=== PATIENT | female | born 1990 | race African-American/Black ===

== ENCOUNTER 2019-05-12 16:09 | Outpatient (CLI) | payer OTHER ==
[2019-05-12 18:10] LABS: BACTERIA (WET MOUNT) 4+ BACTERIA SEEN; EPITHELIALS (WET MOUNT) 4+ EPITHELIALS SEEN; T.VAGINALIS (WET MOUNT) NO TRICHOMONAS SEEN; WBCS (WET MOUNT) 2+ WBCS SEEN; YEAST (WET MOUNT) NO YEAST SEEN
[2019-05-12 18:36] LABS: APPEARANCE,URINE CLEAR; BILIRUBIN,URINE NEGATIVE (NEGATIVE); COLOR,URINE YELLOW; GLUCOSE, URINE NEGATIVE (NEGATIVE); KETONES,URINE TRACE mg/dL (NEGATIVE); LEUKOCYTE ESTERASE,URINE TRACE (NEGATIVE); NITRITE,URINE NEGATIVE (NEGATIVE); PROTEIN,URINE NEGATIVE (NEGATIVE); URINE SPECIFIC GRAVITY 1.003; UROBILINOGEN,URINE NEGATIVE mg/dL (<2.0)
[2019-05-12 18:40] LABS: URINE AMPHETAMINES SCREEN NEGATIVE; URINE BARBITURATES SCREEN NEGATIVE; URINE BENZODIAZEPINES SCREEN NEGATIVE; URINE COCAINE SCREEN NEGATIVE; URINE MARIJUANA (THC) SCREEN NEGATIVE; URINE METHADONE SCREEN NEGATIVE; URINE PHENCYCLIDINE SCREEN NEGATIVE
[2019-05-12 19:37] LABS: CHLAM PCR NOT DETECTED (NOT DETECT)
== END 2019-05-12 20:03 | disposition home or self-care (01) ==
LOC: LC 16:09
PROVIDERS: ATTEND Student in an Organized Health Care Education/Training Program
PROC: 4A1HXCZ Monitoring of Products of Conception, Cardiac Rate, External Approach (ICD-10-PCS; principal; 2019-05-12)
DX: O26.872 Cervical shortening, second trimester (principal); Z3A.22 22 weeks gestation of pregnancy
CPT/HCPCS: 80307; 81001; 87086; 87210; 87491; 87591

== ENCOUNTER 2019-08-06 09:54 | Outpatient (CLI) | payer OTHER ==
[2019-08-06] MEDS ORDERED: BETAMET ACET/BETAMET NA INJ 6 MG/1 ML IM PRN (11:22)
[2019-08-06] MEDS ORDERED: BETAMET ACET/BETAMET NA INJ 6 MG/1 ML ONE (11:35)
--- NOTE | 2019-08-06 12:00 | Non Stress Test Report ---
Non Stress Test Datetime Report Generated by CPN: 08/06/2019 12:00 DEMOGRAPHIC EGA NST: 35.1 VITAL SIGNS Temperature - NST: 99.0 Pulse - NST: 88 RESP - NST: 16 NBPSYS NST: 118 NBPDIA NST: 67 MONITORING Monitor Explained: Monitor Explained; Test Explained; Patient Verbalized Understanding Time on Monitor: 08/06/2019 10:18 Time off Monitor: 08/06/2019 11:16 NST Duration: 58 NST INTERVENTIONS NST Interventions: PO Hydration; Reposition Patient Physician Notified NST: Dr. Stewart BABY A: [id number] BABY A Movement : Present Contraction Frequency : rare FHR Baseline : 130 Accelerations : 15X15 Decelerations : None Variability : Moderate 6-25bpm NST Review: Meets Criteria for Reactive NST NST Review and Verified By : Higinio Motley RN NST Results: Reactive NST REPORT Report Trigger: Send Report
== END 2019-08-06 11:54 | disposition home or self-care (01) ==
LOC: LC 09:54
PROVIDERS: ATTEND Obstetrics & Gynecology
DX: O36.5930 Maternal care for other known or suspected poor fetal growth, third trimester, not applicable or unspecified (principal); Z3A.35 35 weeks gestation of pregnancy
CPT/HCPCS: 59025; 96372; J0702

== ENCOUNTER 2019-08-07 11:36 | Outpatient (CLI) | payer OTHER ==
[2019-08-07] MEDS ORDERED: BETAMET ACET/BETAMET NA INJ 6 MG/1 ML IM ONE (11:38)
[2019-08-07] MEDS ORDERED: BETAMET ACET/BETAMET NA INJ 6 MG/1 ML ONE (11:43)
== END 2019-08-07 11:52 | disposition home or self-care (01) ==
LOC: LC 11:36
PROVIDERS: ATTEND Obstetrics & Gynecology Gynecology
DX: O36.5930 Maternal care for other known or suspected poor fetal growth, third trimester, not applicable or unspecified (principal); Z3A.35 35 weeks gestation of pregnancy
CPT/HCPCS: 59025; 96372; J0702

== ENCOUNTER 2019-08-11 06:51 | Inpatient (IN) | payer OTHER ==
[2019-08-11 07:35] LABS: APPEARANCE,URINE CLEAR; BILIRUBIN,URINE NEGATIVE (NEGATIVE); COLOR,URINE STRAW; GLUCOSE, URINE NEGATIVE (NEGATIVE); KETONES,URINE NEGATIVE (NEGATIVE); LEUKOCYTE ESTERASE,URINE MODERATE (NEGATIVE); NITRITE,URINE NEGATIVE (NEGATIVE); PROTEIN,URINE NEGATIVE (NEGATIVE); URINE SPECIFIC GRAVITY 1.006; UROBILINOGEN,URINE NEGATIVE mg/dL (<2.0)
[2019-08-11] MEDS ORDERED: CEFAZOLIN 1 GM/D5W RTU 1 GM/50 ML RTUPB IV ONE (07:57)
[2019-08-11] MEDS ORDERED: CITRIC ACID/SODIUM CITRATE ORAL SOLN 15 ML UDCUP ONE (07:57)
--- NOTE | 2019-08-11 07:58 | Admission Physical ---
Datetime Report Generated by CPN: 08/11/2019 07:58 CURRENT ADMISSION Chief Complaint: Uterine Contractions; Suspected Ruptured Membranes Indication for Induction: Not Applicable Admit Impression : , Intrauterine ; Ruptured Membranes; Primary Section Admit Plan: Admit to Unit; Initiate Section Protocol ALLERGIES Medication Allergies: Yes Medication Allergies: Sulfa (Sulfonamide Antibiotics) (08/11/2019); Shellfish * (08/11/2019) Latex: No Latex Allergies OBSTETRICAL HISTORY EDC: 09/09/2019 00:00 : 1 Para: 0 Term: 0 : 0 SAB: 0 IAB: 0 Ectopic: 0 Livin Cesareans: 0 VBACs: 0 Multiple Births: 0 Obstetrical History Comments: G1- Current SEE RECORDS Alcohol: No Marijuana : No Cocaine: No Other Illicit Drugs: No Cigarettes: Never Smoker. [id number] PHYSICAL EXAM General: Normal HEENT: Normal Neurologic: Normal Thyroid: Normal Heart: Normal Lungs: Normal Breast: Deferred Back: Normal Abdomen: Normal Genitourinary Exam: Normal Extremities: Normal DTRs: Normal Pelvic Type: Adequate VAGINAL EXAM Dilatation: 10 Effacement: 100 Station: -3 MEMBRANES Pooling: Positive Membranes: Ruptured FETUS A EGA: 35.6 Monitoring: External US FHR- Baseline: 120 Variability: Moderate 6-25bpm Decelerations: None FHR Category: Category I Presentation: Breech Admit Comment: Breech and complete. Will proceed with a c section PLANS FOR LABOR AND DELIVERY Benefit of Breast Feed Discussed: Yes Circumcision: Yes INFORMED CONSENT Signature: with User ID: [email or web address]
[2019-08-11] MEDS ORDERED: FENTANYL CITRATE INJ/PF 100 MCG/2 ML AMPUL ONE (08:04)
[2019-08-11] MEDS ORDERED: MIDAZOLAM 2 MG/2 ML INJ ONE (08:04)
[2019-08-11] MEDS ORDERED: ONDANSETRON HCL INJ/PF 4 MG/2 ML SDV ONE (08:04)
[2019-08-11] MEDS ORDERED: MORPHINE SULFATE 10 MG/ML INJ ONE (08:05)
[2019-08-11] MEDS ORDERED: OXYTOCIN 10 UNIT/ML VIAL ONE ×2 (08:05→08:44)
[2019-08-11 08:07] LABS: URINE AMPHETAMINES SCREEN NEGATIVE; URINE BARBITURATES SCREEN NEGATIVE; URINE BENZODIAZEPINES SCREEN NEGATIVE; URINE COCAINE SCREEN NEGATIVE; URINE MARIJUANA (THC) SCREEN NEGATIVE; URINE METHADONE SCREEN NEGATIVE; URINE PHENCYCLIDINE SCREEN NEGATIVE
[2019-08-11] MEDS ORDERED: PROPOFOL INJ 200 MG/20 ML VIAL IV ONE (08:44)
[2019-08-11] MEDS ORDERED: DIPH/PERTUSS(ACELL)/TETANUS VAC/PF 0.5 ML SYR (>=10YO) IM PRN (09:07)
[2019-08-11] MEDS ORDERED: MEASLES,MUMPS&RUBELLA VACC/PF 0.5 ML VIAL SUBCUT PRN (09:07)
[2019-08-11] MEDS ORDERED: OXYTOCIN/NORMAL SALINE 20 UNIT/1,000 ML RTUINJ IV PRN (09:07)
[2019-08-11] MEDS ORDERED: PROMETHAZINE HCL INJ 25 MG/1 ML VIAL IV PRN (09:07)
[2019-08-11] MEDS ORDERED: MORPHINE SULFATE 10 MG/ML INJ IV PRN (09:07)
[2019-08-11] MEDS ORDERED: ACETAMINOPHEN 325 MG TABLET PO PRN (09:07)
[2019-08-11] MEDS ORDERED: SIMETHICONE 80 MG TAB.CHEW PO PRN (09:07)
[2019-08-11] MEDS ORDERED: ACETAMINOPHEN 1,000 MG/100 ML RTUPB IV PRN (09:07)
[2019-08-11] MEDS ORDERED: OXYTOCIN/NORMAL SALINE 20 UNIT/1,000 ML RTUINJ ONE (09:10)
[2019-08-11] MEDS ORDERED: MISOPROSTOL 0.1 MG TABLET PR ONE (09:20)
[2019-08-11] MEDS ORDERED: MISOPROSTOL 0.2 MG TABLET ONE (09:24)
[2019-08-11] MEDS ORDERED: MISOPROSTOL 0.2 MG TABLET PR ONE (09:25)
--- NOTE | 2019-08-11 09:25 | Operative Report ---
Operative Report DATE OF SURGERY: 08/11/19 Operative Report: Primary low transverse hysterotomy section PREOPERATIVE DIAGNOSIS: IUP at 35 weeks, active labor, ruptured membranes, footling breech POSTOPERATIVE DIAGNOSIS: Same OPERATION: Primary low transverse hysterotomy section with breech extraction under general anesthesia SURGEON: TAMIKA YEUNG ANESTHESIA: GA TISSUE REMOVED OR ALTERED: None COMPLICATIONS: None ESTIMATED BLOOD LOSS: 800 cc INTRAOPERATIVE FINDINGS: Male footling breech presentation with foot and leg in the vagina, was back down, 2995 grams, nuchal cord and body cord x1 each PROCEDURE: PROCEDURE IN DETAIL: The patient was taken to the operating room spinal anesthesia administered. prepared and draped in a normal sterile fashion in a supine position with a leftward tilt. On testing of anesthesia was found to be inadequate therefore decision for general anesthesia was made. A transverse skin incision was made with a scalpel and carried through to the underlying layer of fascia with the same scalpel. The fascia was excised in the midline and extended laterally with Mayos. The fascia was then dissected from the rectus muscle bluntly and the rectus muscle was divided and the peritoneal cavity was entered bluntly. With good visualization of the bladder and the uterus the bladder blade was inserted. The hysterotomy was nicked with a scalpel and extended laterally with surgeon finger fraction. The infants leg was then extracted from the vaginal cavity. Both legs were grasped and the baby was delivered using the normal breech maneuvers atraumatically. The nose and mouth were suctioned with a suction bulb, the cord was clamped and cut and handed off to awaiting pediatricians. Cord blood was collected. The placenta was removed manually. The uterus was exteriorized and cleared of clots and debris. The hysterotomy was closed with 0 Monocryl in a running, locked fashion. A second layer of the same suture was used to imbricate to ensure hemostasis. The uterus was returned to the abdomen and peritoneal cavity was cleared of clots and debris. The rectus muscle and peritoneum were repaired with mattress stitch of 2-0 Chromic. The fascia was closed with 0-Vicryl. The subcutaneous layer was closed with plain catgut and the skin was closed with 4-0 Vicryl. The patient tolerated the procedure well. Sponge, lap, and needle counts correct x2 and the patient was taken to recovery in stable condition.
[2019-08-11] MEDS ORDERED: ACETAMINOPHEN 1,000 MG/100 ML RTUPB IV ONE (09:31)
[2019-08-11] MEDS ORDERED: METHYLERGONOVINE MALEATE INJ/PF 0.2 MG/1 ML AMPULE ONE ×2 (09:42→10:08)
[2019-08-11] MEDS ORDERED: METHYLERGONOVINE MALEATE INJ/PF 0.2 MG/1 ML AMPULE IM ONE (09:44)
[2019-08-11] MEDS ORDERED: METHYLERGONOVINE MALEATE INJ/PF 0.2 MG/1 ML AMPULE IV ONE (10:15)
[2019-08-11 10:22] LABS: ABSOLUTE EOSINOPHILS # (AUTO) 0.1 10^3/uL (0.0-0.6); ABSOLUTE MONOCYTES (AUTO) 1.2 10^3/uL (0.1-1.4); ABSOLUTE NEUT (AUTO) 13.1 10^3/uL (1.7-8.2); BASOPHILS % (AUTO) 0.3 % (0-2); EOSINOPHILS % (AUTO) 0.4 % (0-6); HEMATOCRIT 32.2 % (36.0-47.0); HEMOGLOBIN 10.9 g/dL (12.0-15.5); MEAN CORPUSCULAR HEMOGLOBIN 29.2 pg (27.0-33.4); MEAN CORPUSCULAR HGB CONC 33.8 g/dL (32.0-36.0); MEAN CORPUSCULAR VOLUME 86 fl (80-97); MONOCYTES % (AUTO) 7.4 % (3-13); PLATELET COUNT 215 10^3/uL (150-450); RED BLOOD COUNT 3.74 10^6/uL (3.72-5.28); RED CELL DISTRIBUTION WIDTH 13.8 % (11.5-14.0); SEGMENTED NEUTROPHILS % (AUTO) 79.9 % (42-78); TOTAL CELLS COUNTED % (AUTO) 100 %; WHITE BLOOD COUNT 16.3 10^3/uL (4.0-10.5)
[2019-08-11] MEDS: KETOROLAC TROMETHAMINE INJ/PF 30 MG/1 ML SDV IV SCH ×2 (12:25→19:01)
[2019-08-11] MEDS: OXYCODONE-ACETAMINOPHEN 5-325 MG TABLET PO PRN ×2 (12:26→22:50)
[2019-08-11] MEDS: PRENATAL VITAMIN W DHA CAPSULE PO SCH (13:14)
[2019-08-11] MEDS: DOCUSATE SODIUM 100 MG CAPSULE PO SCH ×2 (13:14→18:34)
[2019-08-11] MEDS ORDERED: SUCCINYLCHOLINE CHLORIDE INJ 200 MG/10 ML VIAL ONE (13:52)
[2019-08-11] MEDS ORDERED: AMPICILLIN SOD/SULBACTAM 3 GM VIAL IV SCH (14:00)
[2019-08-11] MEDS: AMPICILLIN SODIUM/SULBACTAM NA 3 GM in NORMAL SALINE 100 ML IV SCH ×2 (14:09→21:03)
[2019-08-12] MEDS: KETOROLAC TROMETHAMINE INJ/PF 30 MG/1 ML SDV IV SCH (01:58)
[2019-08-12] MEDS: AMPICILLIN SODIUM/SULBACTAM NA 3 GM in NORMAL SALINE 100 ML IV SCH ×2 (05:26→15:30)
[2019-08-12 07:34] LABS: HEMATOCRIT 22.1 % (36.0-47.0); MEAN CORPUSCULAR HEMOGLOBIN 29.8 pg (27.0-33.4); MEAN CORPUSCULAR HGB CONC 35.4 g/dL (32.0-36.0); MEAN CORPUSCULAR VOLUME 84 fl (80-97); PLATELET COUNT 150 10^3/uL (150-450); RED BLOOD COUNT 2.63 10^6/uL (3.72-5.28); RED CELL DISTRIBUTION WIDTH 13.4 % (11.5-14.0); WHITE BLOOD COUNT 14.7 10^3/uL (4.0-10.5)
[2019-08-12 07:45] LABS: HEMOGLOBIN 7.8 g/dL (12.0-15.5)
[2019-08-12] MEDS ORDERED: OXYCODONE-ACETAMINOPHEN 5-325 MG TABLET PO PRN ×2 (08:42)
[2019-08-12] MEDS: OXYCODONE-ACETAMINOPHEN 5-325 MG TABLET PO PRN ×2 (08:46→19:29)
[2019-08-12] MEDS: IBUPROFEN 800 MG TABLET PO SCH ×3 (08:46→22:06)
[2019-08-12] MEDS ORDERED: IRON SUCROSE COMPLEX INJ/PF 100 MG/5 ML SDV IV ONE (09:30)
[2019-08-12] MEDS: DOCUSATE SODIUM 100 MG CAPSULE PO SCH ×2 (10:01→17:04)
[2019-08-12] MEDS: PRENATAL VITAMIN W DHA CAPSULE PO SCH (10:01)
--- NOTE | 2019-08-12 14:38 | PDOC PROGRESS REPORT ---
Subjective-OB Progress Note for:: 08/12/19 Subjective: 29 yo G1 now P1 s/p primary ppd1. Pt ambulating and voiding without difficulty. Reports pain well controlled by medication, no concerns today Physical Exam (OB) Vital Signs: Temp Pulse Resp BP Pulse Ox 98.4 F 104 H 16 108/55 L 98 08/12/19 11:01 08/12/19 11:01 08/12/19 11:01 08/12/19 11:01 08/12/19 11:01 Intake & Output 08/11/19 08/12/19 08/13/19 06:59 06:59 06:59 Intake Total 1580 300 Output Total 1700 Balance -120 300 Weight 72.3 kg - General General Appearance: Appears well In distress: None - PIH/Pre-Eclampsia DTR's: 1 + Clonus: Negative Headache: Absent Epigastric Pain: No Visual Changes: No - Dressing Removed: No Incision: Dressing Closure Type: op site - Lochia Lochia Amount: Scant < 10 ml Lochia Color: Rubra/Red - Abdomen Description: Soft, Round Hernia Present: No Fundal Description: Firm, Midline Fundal Height: u/u - u/2 - Respiratory Respiratory Status: No respiratory distress - Extremities Upper extremity: Normal inspection Lower extremities: Normal inspection - Neurological Cognition: Normal Orientation: AAOx4 - Psychological Associated symptoms: Normal affect, Normal mood Objective-Diagnostic Laboratory: 08/12/19 06:35 08/12/19 06:35 WBC 14.7 H RBC 2.63 L Hgb 7.8 L D Hct 22.1 L MCV 84 MCH 29.8 MCHC 35.4 RDW 13.4 Plt Count 150 Assessment and Plan(PN) - Assessment and Plan (1) SRM (spontaneous rupture of membranes) Is this a current diagnosis for this admission?: Yes Plan: delivered (2) Acute blood loss anemia Is this a current diagnosis for this admission?: Yes Plan: increase dietary iron and FeSO4 BID, IV iron ordered and given (3) Anemia complicating in third trimester Is this a current diagnosis for this admission?: Yes Plan: increase dietary iron and FeSO4 BID, IV iron given (4) S/P primary low transverse Is this a current diagnosis for this admission?: Yes Plan: routine pp care (5) Breech presentation, delivered, current hospitalization Is this a current diagnosis for this admission?: Yes Plan: delivered via primary - Time Spent with Patient Time with patient: Less than 15 minutes Medications reviewed and adjusted accordingly: Yes - Disposition Anticipated Discharge: Home Within: within 24 hours
[2019-08-13] MEDS: IBUPROFEN 800 MG TABLET PO SCH ×3 (02:57→15:03)
[2019-08-13] MEDS: OXYCODONE-ACETAMINOPHEN 5-325 MG TABLET PO PRN ×2 (04:36→13:45)
[2019-08-13] MEDS: DOCUSATE SODIUM 100 MG CAPSULE PO SCH (09:10)
[2019-08-13] MEDS: PRENATAL VITAMIN W DHA CAPSULE PO SCH (09:10)
[2019-08-13 12:02] VITALS: BP 105/54
--- NOTE | 2019-08-13 12:22 | PDOC DISCHARGE SUMMARY ---
Impression - Admit/DC Date/PCP Admission Date/Primary Care Provider: 08/11/19 07:52 EVER TYSON MD Discharge Date: 08/13/19 - Discharge Diagnosis (1) Acute blood loss anemia Is this a current diagnosis for this admission?: Yes (2) Anemia complicating in third trimester Is this a current diagnosis for this admission?: Yes (3) Breech presentation, delivered, current hospitalization Is this a current diagnosis for this admission?: Yes (4) S/P primary low transverse Is this a current diagnosis for this admission?: Yes (5) SRM (spontaneous rupture of membranes) Is this a current diagnosis for this admission?: Yes - Additional Information Resuscitation Status: Full Code Discharge Diet: Regular Discharge Activity: Balance Activity w/Rest, No Lifting Over 10 Pounds, No Lifting/Push/Pulling, No tub bath Referrals: [facility] [Provider Group] (Please call and schedule a 1 week f/u at [facility] for incision check.) Prescriptions: Oxycodone HCl/Acetaminophen [Percocet 5-325 mg Tablet] 1 tab PO Q4HP PRN #30 tablet PRN Reason: Ibuprofen [Motrin 800 mg Tablet] 800 mg PO Q8HP PRN #60 tablet PRN Reason: Home Medications: Pnv 102/Iron/Folate 1/Dss/Dha [Vitafol Fe+ Docusate Combo Pck] 1 each PO DAILY 08/07/19 Progesterone, Micronized [Progesterone] 200 mg PV DAILY 08/07/19 Ibuprofen [Motrin 800 mg Tablet] 800 mg PO Q8HP PRN #60 tablet 08/13/19 Oxycodone HCl/Acetaminophen [Percocet 5-325 mg Tablet] 1 tab PO Q4HP PRN #30 tablet 08/13/19 HPI Gestational Age: 35.6 Reason(s) for Admission: Onset of Labor Admission Note: Breech presentation Procedures: NST Intrapartum Procedure(s): : Low Cervical, Transverse Results Laboratory Results: WBC 14.7 10^3/uL (4.0-10.5) H 08/12/19 06:35 RBC 2.63 10^6/uL (3.72-5.28) L 08/12/19 06:35 Hgb 7.8 g/dL (12.0-15.5) L D 08/12/19 06:35 Hct 22.1 % (36.0-47.0) L 08/12/19 06:35 MCV 84 fl (80-97) 08/12/19 06:35 MCH 29.8 pg (27.0-33.4) 08/12/19 06:35 MCHC 35.4 g/dL (32.0-36.0) 08/12/19 06:35 RDW 13.4 % (11.5-14.0) 08/12/19 06:35 Plt Count 150 10^3/uL (150-450) 08/12/19 06:35 Lymph % (Auto) 12.0 % (13-45) L 08/11/19 09:39 [place] % (Auto) 7.4 % (3-13) 08/11/19 09:39 Eos % (Auto) 0.4 % (0-6) 08/11/19 09:39 Baso % (Auto) 0.3 % (0-2) 08/11/19 09:39 Absolute Neuts (auto) 13.1 10^3/uL (1.7-8.2) H 08/11/19 09:39 Absolute Lymphs (auto) 2.0 10^3/uL (0.5-4.7) 08/11/19 09:39 Absolute Monos (auto) 1.2 10^3/uL (0.1-1.4) 08/11/19 09:39 Absolute Eos (auto) 0.1 10^3/uL (0.0-0.6) 08/11/19 09:39 Absolute Basos (auto) 0.0 10^3/uL (0.0-0.2) 08/11/19 09:39 Seg Neutrophils % 79.9 % (42-78) H 08/11/19 09:39 Urine Color STRAW 08/11/19 07:00 Urine Appearance CLEAR 08/11/19 07:00 Urine pH 7.0 (5.0-9.0) 08/11/19 07:00 Ur Specific [place] 1.006 08/11/19 07:00 Urine Protein NEGATIVE mg/dL (NEGATIVE) 08/11/19 07:00 Urine Glucose (UA) NEGATIVE mg/dL (NEGATIVE) 08/11/19 07:00 Urine Ketones NEGATIVE mg/dL (NEGATIVE) 08/11/19 07:00 Urine Blood SMALL (NEGATIVE) H 08/11/19 07:00 Urine Nitrite NEGATIVE (NEGATIVE) 08/11/19 07:00 Urine Bilirubin NEGATIVE (NEGATIVE) 08/11/19 07:00 Urine Urobilinogen NEGATIVE mg/dL (<2.0) 08/11/19 07:00 Ur Leukocyte Esterase MODERATE (NEGATIVE) H 08/11/19 07:00 Urine WBC (Auto) 8 /HPF 08/11/19 07:00 Urine RBC (Auto) 2 /HPF 08/11/19 07:00 Urine Bacteria (Auto) TRACE /HPF 08/11/19 07:00 Squamous Epi Cells Auto 2 /HPF 08/11/19 07:00 Urine Mucus (Auto) RARE /LPF 08/11/19 07:00 Urine Ascorbic Acid NEGATIVE (NEGATIVE) 08/11/19 07:00 Membranes Rupture POSITIVE (NEGATIVE) H 08/11/19 07:00 Urine Opiates Screen NEGATIVE 08/11/19 07:00 Urine Methadone Screen NEGATIVE 08/11/19 07:00 Ur Barbiturates Screen NEGATIVE 08/11/19 07:00 Ur Phencyclidine Scrn NEGATIVE 08/11/19 07:00 Ur Amphetamines Screen NEGATIVE 08/11/19 07:00 U Benzodiazepines Scrn NEGATIVE 08/11/19 07:00 Urine Cocaine Screen NEGATIVE 08/11/19 07:00 U Marijuana (THC) Screen NEGATIVE 08/11/19 07:00 RPR NONREACTIVE (NONREACTIVE) 08/11/19 09:39 Blood Type B POSITIVE 08/11/19 09:39 Antibody Screen NEGATIVE 08/11/19 09:39 Plan Plan of Treatment: f/u at [facility] 1 wk for incision check Time Spent: Less than 30 Minutes
== END 2019-08-13 15:05 | disposition home or self-care (01) | DRG 787 ==
LOC: LC 06:51 → LR 07:52 → 2S 11:40
PROVIDERS: ADMIT Obstetrics & Gynecology; ATTEND Obstetrics & Gynecology
PROC: 10D00Z1 Extraction of Products of Conception, Low, Open Approach (ICD-10-PCS; principal; 2019-08-11)
DX: O60.14X0 Preterm labor third trimester with preterm delivery third trimester, not applicable or unspecified (principal); D62 Acute posthemorrhagic anemia; O32.1XX0 Maternal care for breech presentation, not applicable or unspecified; Z3A.35 35 weeks gestation of pregnancy; O69.81X0 Labor and delivery complicated by cord around neck, without compression, not applicable or unspecified; O69.2XX0 Labor and delivery complicated by other cord entanglement, with compression, not applicable or unspecified; Z37.0 Single live birth; O99.02 Anemia complicating childbirth
CPT/HCPCS: 1961; 36415; 80307; 81001; 84112; 85025; 85027; 86592; 86850; 86900; 86901; 90715; 94760; 94799; 99140; J0131; J0295; J0330; J0690; J1756; J1885; J2210; J2250; J2270; J2405; J2590; J2704; J3010; J3490; J7050